=== PATIENT | male | born 1995 | race Caucasian/White ===

== ENCOUNTER 2019-01-01 19:37 | Emergency (ER) | payer BC ==
[2019-01-01] MEDS ORDERED: NS 0.9% 1000 ML** 1,000 ML IV ONE (19:56)
[2019-01-01 20:09] LABS: ABS Basophils 0.1 10^3/ul (0-0.2); ABS Eosinophils 0.5 10^3/ul (0-0.6); ABS Lymphocytes 3.8 10^3/ul (1.0-4.8); ABS Monocytes 0.7 10^3/ul (0-0.8); ABS Neutrophils 3.1 10^3/ul (1.5-7.7); Eosinophil % 6.4 %; Hematocrit 42 % (42-52); Hemoglobin 14.2 g/dL (14.0-18.0); Lymphocyte % 46.8 %; Mean Corpuscular HGB Conc 34 g/dL (31-36); Mean Corpuscular Hemoglobin 30 pg (27-31); Mean Corpuscular Volume 88 fL (80-94); Mean Platelet Volume 8.1 fL (7.4-10.4); Nucleated Red Blood Cells % 0.2; Platelet Count 285 10^3/uL (150-450); Red Blood Count 4.75 10^6 /uL (4.18-5.48); Red Cell Distribution Width 13 % (10-15); White Blood Count 8.1 10^3/uL (3.5-10.8)
--- NOTE | 2019-01-01 20:17 | ED ---
Syncope/Near Syncope - HPI Summary HPI Summary: Patient complains of episode of near syncope, flushed face, palpitations, lightheadedness 40 minutes [employer]. Patient states he also ate thrombolysis for the first time, felt a slight tickle in his throat which resolved. Denies any pruritus, SOB, oropharyngeal swelling. Patient states history of episodes of palpitations, full motion with caffeine. Denies fever, cough, sore throat, CP, SOB, N/V/D, abdominal pain, change in urine, change in BM. Medical history is none. Denies any new medications, new supplements, energy drinks, recreational drug use. - History Of Current Complaint Chief Complaint: EDDizziness Time Seen by Provider: 01/01/19 19:55 Hx Obtained From: Patient Onset/Duration: Sudden Onset, Lasting Minutes Timing: Constant Context: Witnessed Activity At Onset: At Rest Associated Head Trauma: No Aggravating Factor(s): Position Change Alleviating Factor(s): Spontaneous Resolution Associated Signs And Symptoms: Lightheadedness, Palpitations - Allergies/Home Medications Allergies/Adverse Reactions: Allergies Allergy/AdvReac Type Severity Reaction Status Date / Time No Known Allergies Allergy Verified 01/01/19 19:43 Home Medications: Home Medications NK [No Home Medications Reported] 01/01/19 [History Confirmed 01/01/19] PMH/Surg Hx/FS Hx/Imm Hx Endocrine/Hematology History: Denies: Hx Anticoagulant Therapy Cardiovascular History: Denies: Hx Pacemaker/ICD History: Denies: Hx Dialysis Sensory History: Denies: Hx Eye Prosthesis Opthamlomology History: Denies: Hx Legally Blind EENT History: Denies: Hx Deafness Neurological History: Denies: Hx Dementia Infectious Disease History: No Infectious Disease History: Denies: Traveled Outside the [place] in Last 30 Days - Family History Known Family History: Positive: Non-Contributory - Social History Alcohol Use: Occasionally Substance Use Type: Reports: None Smoking Status (MU): Never Smoked Tobacco Review of Systems Positive: Skin Diaphoresis Eyes: Negative ENT: Negative Positive: Palpitations Respiratory: Negative Gastrointestinal: Negative Genitourinary: Negative Musculoskeletal: Negative Skin: Negative Neurological: Negative Psychological: Normal All Other Systems Reviewed And Are Negative: Yes Physical Exam Triage Information Reviewed: Yes Vital Signs On Initial Exam: Initial Vitals Temp Pulse Resp BP Pulse Ox 98.9 F 101 20 167/90 100 01/01/19 19:40 01/01/19 19:40 01/01/19 19:40 01/01/19 19:40 01/01/19 19:40 Vital Signs Reviewed: Yes Appearance: Positive: Well-Appearing Skin: Positive: Warm Head/Face: Positive: Normal Head/Face Inspection Eyes: Positive: Normal Neck: Positive: Supple Respiratory/Lung Sounds: Positive: Clear to Auscultation Cardiovascular: Positive: Normal Abdomen Description: Positive: Nontender Musculoskeletal: Positive: Normal Neurological: Positive: Normal Psychiatric: Positive: Normal AVPU Assessment: Alert - Salma Coma Scale Best Eye Response: 4 - Spontaneous Best Motor Response: 6 - Obeys Commands Best Verbal Response: 5 - Oriented Coma Scale Total: 15 Procedures - Sedation Patient Received Moderate/Deep Sedation with Procedure: No Diagnostics - Vital Signs Vital Signs Temp Pulse Resp BP Pulse Ox 01/01/19 19:40 98.9 F 101 20 167/90 100 - Laboratory Lab Results: Lab Results 01/01/19 Range/Units 20:04 WBC 8.1 (3.5-10.8) 10^3/uL RBC 4.75 (4.18-5.48) 10^6 /uL Hgb 14.2 (14.0-18.0) g/dL Hct 42 (42-52) % MCV 88 (80-94) fL MCH 30 (27-31) pg MCHC 34 (31-36) g/dL RDW 13 (10-15) % Plt Count 285 (150-450) 10^3/uL MPV 8.1 (7.4-10.4) fL Neut % (Auto) 37.9 % Lymph % (Auto) 46.8 % [place] % (Auto) 8.2 % Eos % (Auto) 6.4 % Baso % (Auto) 0.7 % Absolute Neuts (auto) 3.1 (1.5-7.7) 10^3/ul Absolute Lymphs (auto) 3.8 (1.0-4.8) 10^3/ul Absolute Monos (auto) 0.7 (0-0.8) 10^3/ul Absolute Eos (auto) 0.5 (0-0.6) 10^3/ul Absolute Basos (auto) 0.1 (0-0.2) 10^3/ul Absolute Nucleated RBC 0.0 10^3/ul Nucleated RBC % 0.2 Result Diagrams: 01/01/19 20:04 01/01/19 20:04 Lab Statement: Any lab studies that have been ordered have been reviewed, and results considered in the medical decision making process. Course/Dx Course Of Treatment: Patient complains of episode of near syncope, flushed face , palpitations, lightheadedness 40 minutes [employer]. Patient states he also ate thrombolysis for the first time, felt a slight tickle in his throat which resolved. Denies any pruritus, SOB, oropharyngeal swelling. Patient states history of episodes of palpitations, full motion with caffeine. Denies fever, cough, sore throat, CP, SOB, N/V/D, abdominal pain, change in urine, change in BM. Medical history is none. Denies any new medications, new supplements, energy drinks, recreational drug use. Vital signs within normal limits. Labs unremarkable. First EKG sinus rhythm with a rate of 97 and prolonged QT interval. Second EKG sinus bradycardia with heart rate of 59. No prior EKGs on file. Patient advised to follow up with cardiology for potential holter monitor and evaluation. - Diagnoses Provider Diagnoses: Lightheadedness, Intermittent palpitations Discharge ED - Sign-Out/Discharge Documenting (check all that apply): Patient Departure - Discharge Plan Condition: Stable Disposition: HOME Patient Education Materials: Heart Palpitations (ED), Lightheadedness (ED) Referrals: No Primary Care Phys,NOPCP [Primary Care Provider] - Sisi Carcamo MD [Medical Doctor] - Additional Instructions: Follow-up with primary care and/or cardiology Dr Carcamo for further evaluation and potential Holter monitor. Return to the ED for any worsening symptoms. - Billing Disposition and Condition Condition: STABLE Disposition: Home - Attestation Statements Provider Attestation: I have seen the patient with the JOSE and agree with the plan and documentation below except as noted: 23-year-old male presents of lightheadedness. EKG with slightly prolonged QTC, normal on repeat EKG. Patient apparently having heart rates in the 50s to high 90s, we'll have him arrange to get Holter monitor Amanda Lantigua MD
[2019-01-01 20:27] LABS: Albumin 4.6 g/dL (3.2-5.2); Albumin/Globulin Ratio 1.7 (1-3); BUN/Creatinine Ratio 13.9 (8-20); Calcium 9.7 mg/dL (8.6-10.3); EGFR African American 108.9 (>60); Globulin 2.7 g/dL (2-4); Magnesium 2.2 mg/dL (1.9-2.7); Potassium 3.7 mmol/L (3.5-5.0); Total Bilirubin 0.5 mg/dL (0.2-1.0); Total Protein 7.3 g/dL (6.4-8.9)
[2019-01-01 21:07] LABS: TSH (Thyroid Stimulating Horm) 1.35 mcIU/mL (0.34-5.60)
[2019-01-01 22:14] VITALS: BP 126/75
== END 2019-01-01 22:05 | disposition home or self-care (01) ==
LOC: ED 19:37
DX: R42 Dizziness and giddiness (principal); R00.2 Palpitations; R55 Syncope and collapse; R00.1 Bradycardia, unspecified
CPT/HCPCS: 36415; 80053; 83735; 84443; 84484; 85025; 93005; 99282